=== PATIENT | male | born 1950 | race Caucasian/White ===

== ENCOUNTER 2022-09-17 12:07 | Emergency (ER) | payer OTHER ==
[~2022-09-17] VITALS: Ht 188 cm; Wt 108.9 kg
[2022-09-17] MEDS ORDERED: LEVOTHYROXINE25 MCG (13:20)
[2022-09-17] MEDS ORDERED: PENICILLAMINE(D-5 GM (13:20)
[2022-09-17] MEDS ORDERED: MUCINEX DM ER1 EAC1 PO (15:28)
[2022-09-17] MEDS ORDERED: MEDROLPACK PO (15:28)
[2022-09-17] MEDS ORDERED: BENZONATATE200 M1 PO (15:28)
[2022-09-17] MEDS ORDERED: BUDESONIDE0.5 MG/2 M IH (15:28)
[2022-09-17] MEDS ORDERED: LEVALBUTER1.25 MG/0. IH (15:28)
[2022-09-17] MEDS ORDERED: LEVOFLOXACIN500 MG PO (15:28)
== END 2022-09-17 15:50 ==
LOC: ER 12:07 → EDBD 12:37 → ER 12:37
DX: J20.9 Acute bronchitis, unspecified (principal); R07.89 Other chest pain; Z88.0 Allergy status to penicillin; Z88.2 Allergy status to sulfonamides; Z20.822 Contact with and (suspected) exposure to COVID-19